=== PATIENT | male | born 1975 | race African-American/Black ===

== ENCOUNTER 2023-08-08 04:06 | Emergency (ER) | payer SELFPAY ==
[~2023-08-08] VITALS: Ht 185.4 cm; Wt 100.0 kg
[2023-08-08 04:08] VITALS: TEMP 97.6; O2SAT 99
[2023-08-08 05:47] VITALS: BP 126/78; PULSE 95; RESP 18
[2023-08-08] MEDS ORDERED: IBUPROFEN 600MG TABLET PO STA (05:47)
[2023-08-08] MEDS ORDERED: IBUP-2029 MT (08:43)
== END 2023-08-08 08:59 | disposition home or self-care (01) ==
LOC: EDBD 04:39 → ER 04:39
DX: S80.02XA Contusion of left knee, initial encounter (principal); S80.01XA Contusion of right knee, initial encounter; W01.0XXA Fall on same level from slipping, tripping and stumbling without subsequent striking against object, initial encounter; Y93.89 Activity, other specified; Y92.89 Other specified places as the place of occurrence of the external cause; Y99.8 Other external cause status
CPT/HCPCS: 73560; 99283